=== PATIENT | female | born 1980 | race Caucasian/White ===

== ENCOUNTER 2023-03-21 07:58 | Day surgery (SDC) | payer MEDICARE, OTHER ==
[2023-03-13 10:39] VITALS: BP 118/83
[~2023-03-21] VITALS: Ht 157.5 cm; Wt 83.6 kg
[~2023-03-21 07:58] MED LIST: CYPROHEPTADINE H4 MG PO; LOVENOX120 MG/0.8 SUB-Q; PHENTERMINE H37.5 MG PO; PROZAC20 MG PO; VERAPAMIL ER240 MG PO
[2023-03-21 08:25] VITALS: BP 136/77
[2023-03-21] MEDS ORDERED: VITAMIN D310 MC1 PO (08:30)
[2023-03-21] MEDS ORDERED: FISH OIL 1,0001 EAC7 PO (08:31)
--- NOTE | 2023-03-21 10:33 | NUR ---
03/21/23 Michelle3 Farida Teran PT TO PACU AWAKE AND TALKING DENIES PAIN OR NAUSEA. PT MAINTAINS SATS ABOVE 95% ON ROOM AIR.
[2023-03-21] MEDS ORDERED: ENOXAPARIN40 MG/0.4 SUB-Q (10:35)
[2023-03-21] MEDS ORDERED: ACETAMINOPHEN500 MG PO (10:36)
[2023-03-21] MEDS ORDERED: IBUPROFEN600 MG PO (10:36)
[2023-03-21] MEDS ORDERED: OXYCODON-ACETA1 EAC2 PO (10:36)
[2023-03-21 11:00] VITALS: BP 128/77
[2023-03-21 12:10] VITALS: BP 116/75
--- NOTE | 2023-03-21 13:57 | NUR ---
1100: PT RETURNS TO UNIT VIA STRETCHER. AWAKE AND ALERT ON ARRIVAL. VSS, RESP EVEN AND UNLABORED. LEFT BREAST DRESSING C/D/I. RIGHT BREAST DRESSING WITH SMALL AMOUNT OF RED SHADOWING TO CENTER OF DRESSING. DENIES PAIN AND NAUSEA AT THIS TIME. REPORTING URGE TO VOID. DANGLED AT THE BEDSIDE, ALTA WE[place]. DENIES DIZZINESS AND SOB. TRANSFERS TO THE BEDSIDE COMMODE INDEPENDENTLY AND APPROPRIATELY. SUCCESSFUL FIRST POSTOP VOID, 300MLS. ICE WATER AND CRACKERS PROVIDED. ZAIN PIZANO AT THE BEDSIDE AND REPORT PROVIDED
--- NOTE | 2023-03-21 14:32 | NUR ---
[id number]: PT USES CALL LIGHT AND REQUESTS PAIN MEDICATION, RATES PAIN 4/10 BILATERALLY, STINGING. PT STATES, "I JUST WANT TO STAY AHEAD OF THE GAME BEFORE THE PAIN GETS TOO BAD." SEE EMAR FOR PAIN PRICE ANALYST. [id number]: PT STATES PAIN IS MUCH BETTER AND WOULD LIKE TO GET DRESSED AT THIS TIME. [id number]: DC INSTRUCTIONS PRESENTED TO PT AND PARTNER VERBALLY AND WRITTEN. IV REMOVED WNL. PT DC FROM DS RM 2 VIA WC TO PARTNER WAITING AT [facility] TO HOME.
--- NOTE | 2023-03-23 18:00 | OR ---
[facility] [address], [place] [address] Signed DATE OF OPERATION: 03/21/2023 SURGEON: Enrique Welch MD PREOPERATIVE DIAGNOSIS: Bilateral persistent nipple discharge (multifocal). POSTOPERATIVE DIAGNOSIS: Bilateral persistent nipple discharge (multifocal). PROCEDURE: Bilateral subareolar breast ductal excision. ANESTHESIA: General, LMA, Michael Hunt, SURVEILLANCE SENSOR OFFICER and local 10 mL of 0.25% Marcaine with epinephrine. INDICATION: This 43-year-old woman is a patient of Dr. Arauz and Dr. Costa. She was referred dominantly for right nipple drainage. She has had no prior or . She has had complaints of bilateral nipple discharge, right greater than left. Material is thick yellow but sometimes crankcase green in color and never bloody. Evaluation by Dr. Arauz included bilateral mammogram which was normal and subsequent MRI as recommended by the radiologist, which was normal as well. She does have family history of breast cancer in a paternal grandmother, but no other family members. 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 She was on warfarin chronically at one point and now into the management of Dr. Euceda, crane operator cab, who recommended against continuous anticoagulation. She does take Lovenox prior to plane travel, however. Her Factor V Leiden, hypercoagulable state is well acknowledge. She is admitted at this time to undergo right subareolar breast excision for both diagnosis and management of her persistent nipple drainage. She requests today also on the left side to be performed considering she had increasing drainage from that side as well. She and her partner understand the risk of bleeding, infection, recurrence of nipple drainage and other unforeseen complications related to operation. They also understands that if malignancy should be identified, additional treatment would be necessary. The patient has no intention of or breast-feeding, it is noted. FINDINGS: Electronically Signed By: ENRIQUE WELCH MD 03/23/23 1800 PATIENT NAME: KALEB HOLLINS OPERATIVE REPORT DATE OF : 78 REPORT #: [id number] PHYSICIAN: ENRIQUE WELCH MD PCP: BRI COSTA DO REPORT IS CONFIDENTIAL AND NOT TO BE RELEASED WITHOUT AUTHORIZATION [facility] [address], [place] [address] Signed Yellowish nipple discharge was noted from several duct rosa of the right areola as on the left. Excision included subareolar breast tissue, which had a nodular consistency to it. Those specimens were appropriately oriented and complete excision was undertaken with high probability that cessation of nipple discharge will be a result. Good cosmesis was maintained. PROCEDURE IN DETAIL: The patient was brought to the operating room, given a general LMA type anesthetic. Preoperative antibiotic Ancef was given. She was given heparin subcutaneously preoperatively mindful of her Factor V Leiden issues. Both breasts were prepared with a chlorhexidine solution and draped sterilely. The areolar margin on the right side was marked and an incision was made with a 15 blade. Dissection was carried through the dermis additionally with electrocautery. Flaps were elevated beneath the right nipple. Detaching underlying breast tissue and associated ducts with excision of underlying parenchyma of the breast with meticulous care. Nodular changes were noted in the area suggestive and diagnostic course of intraductal papillomata. The specimen was oriented with a short stitch superior, long stitch laterally and sent for permanent pathology. Irrigation was undertaken. Electrocautery used for hemostasis. The breast parenchyma was reapproximated with a pursestring type 2-0 Vicryl suture, preserving good breast contour beneath the nipple-areolar complex. Additional closure was undertaken in the deeper layers with interrupted 2-0 Vicryl. Skin ultimately closed with a running subcuticular 3-0 Vicryl, Steri-Strips were applied as was Acticoat dressing. With the exact same technique is on the right side, left-sided subareolar excision was undertaken and closed in a similar way. The patient was ultimately extubated and transferred to recovery room in good condition. Sponge, needle, and instrument counts reported as correct x3. In aggregate 10 mL of local anesthetic was used for postoperative analgesic benefit. Blood loss was less than 20 mL in aggregate. Sponge, needle, and instrument counts were as correct x3. MD JENNIFER Silva/MODL /[id number] Electronically Signed By: ENRIQUE WELCH MD 03/23/23 1800 PATIENT NAME: KALEB HOLLINS OPERATIVE REPORT DATE OF : 78 REPORT #: [id number] PHYSICIAN: ENRIQUE WELCH MD PCP: BRI COSTA DO REPORT IS CONFIDENTIAL AND NOT TO BE RELEASED WITHOUT AUTHORIZATION [address] [address] Signed cc: DO Tre Reilly, DO Jacquelyn Euceda MD Copies: BRI COSTA JAMES (MARIBEL) JACQUELYN YODER MD ~ Electronically Signed By: ENRIQUE WELCH MD 03/23/23 1800 PATIENT NAME: KALEB HOLLINSBETH OPERATIVE REPORT DATE OF : 78 REPORT #: [id number] PHYSICIAN: ENRIQUE WELCH MD PCP: BRI COSTA DO REPORT IS CONFIDENTIAL AND NOT TO BE RELEASED WITHOUT AUTHORIZATION
--- NOTE | 2023-03-24 16:13 | PATH ---
[facility] [address] [place], [place] [address] Signed SPECIMEN(S): A RIGHT BREAST, SUBAREOLAR SPECIMEN(S): B LEFT BREAST, SUBAREOLAR SPECIMEN SOURCE: A. RIGHT BREAST, SUBAREOLAR B. LEFT BREAST, SUBAREOLAR CLINICAL HISTORY: A-B) Nipple discharge possible intraductal papilloma FINAL PATHOLOGIC DIAGNOSIS: A. Right breast, subareolar, lumpectomy: - Benign breast tissue with adenosis, fibrocystic changes, apocrine metaplasia, and clustered microcalcifications present in benign breast tissue. - Negative for atypical features or evidence of malignancy. B. Left breast, subareolar, lumpectomy: - Benign breast tissue with adenosis, fibrocystic changes, apocrine metaplasia, and clustered microcalcifications present in benign breast tissue. - Negative for atypical features or evidence of malignancy. COMMENT: As part of [facility]' Quality Improvement Program, this case was reviewed by another member of our pathology staff. MANDY:DS:malika:C2NR MICROSCOPIC EXAMINATION: Histologic sections of all submitted blocks are examined by light microscopy. These findings, together with the gross examination, support the pathologic diagnosis. GROSS DESCRIPTION: A. The specimen, labeled and designated "Monroe Reyes" and designated on the requisition "right subareolar breast tissue," is received in formalin and consists of an oriented portion of fibroadipose tissue (14 g, 4.7 cm medial to lateral, 3.2 cm anterior to posterior, 2.7 cm superior to inferior). There is a short stitch marking superior and a long stitch marking lateral. The specimen is inked as follows: Blue = Superior Green = Inferior Yellow = Anterior PATIENT NAME: KALEB REYES PATHOLOGY DATE OF : 78 REPORT #: [id number] PHYSICIAN: AIYANA PATHOLOGY PCP: BRI COSTA DO REPORT IS CONFIDENTIAL AND NOT TO BE RELEASED WITHOUT AUTHORIZATION [facility] [address] [place], [place] [address] Signed Black = Posterior Red = Medial Irion = Lateral The specimen is serially sectioned from medial to lateral into nine slices to reveal a yellow-mooney fatty to white-mooney fibrous cut surface (40% fibrous). No discrete masses or lesions are gross identified. The specimen is submitted entirely and sequentially from medial to lateral in cassette A1-A10 with the medial and lateral aspects perpendicularly sectioned and A1 and A9-A10 respectively. Cold ischemic time: Cannot be calculated The tissue was fixed in formalin for at least 40 and less than 50 hours B. The specimen, labeled and designated "Walter Reyes" and designated on the requisition "left subareolar breast tissue," is received in formalin and consists of an oriented portion of fibroadipose tissue (17 g, 4.5 cm superior to inferior, 4.5 cm medial to lateral, 2.2 cm anterior to posterior) with short stitch marking superior and long stitch marking lateral. The specimen is inked as follows: Blue = Superior Green = Inferior Yellow = Anterior Black = Posterior Red = Medial Irion = Lateral The specimen is serially sectioned from superior to inferior into 10 slices to reveal a yellow-mooney fatty to white-mooney dense fibrous cut surface (40% fibrous). No discrete mass or lesion is grossly identified. The specimen is submitted entirely and sequentially from superior to inferior. Cassette Summary: (B1) slice one, perpendicularly sectioned, superior margin (B2) slice two (B3-B4) slice three (B5) slice four (B6-B7) slice five (B8-B9) slice six (B10-B11) slice seven (B12-B13) slice eight (B14-B15) slice nine (B16) slice 10, inferior margin, perpendicularly sectioned PATIENT NAME: KALEB REYES PATHOLOGY DATE OF : 78 REPORT #: [id number] PHYSICIAN: AIYANA BAR PCP: BRI COSTA DO REPORT IS CONFIDENTIAL AND NOT TO BE RELEASED WITHOUT AUTHORIZATION [facility] [address] [place], [place] [address] Signed Cold ischemic time: Cannot be calculated The tissue was fixed in formalin for at least 40 and less than 50 hours AC (under the direct supervision of a pathologist) The Gross Description was prepared using a voice recognition system. The report was reviewed for accuracy; however, sound-alike word errors, addition and/or deletions may occur. If there is any question about this report, please contact Client Services. PERFORMING LABORATORY: Technical component was performed by [facility], [address] [place] [id number] (CLIA# [id number]). Professional interpretation was performed by [facility] - [facility], [address] [place], [place] [id number] (CLIA#: [id number]). Diagnostician: Aroldo Parikh MD Pathologist Electronically Signed 03/24/2023 Copies: ~ PATIENT NAME: KALEB REYESBETH PATHOLOGY DATE OF : 78 REPORT #: [id number] PHYSICIAN: AIYANA BAR PCP: BRI COSTA DO REPORT IS CONFIDENTIAL AND NOT TO BE RELEASED WITHOUT AUTHORIZATION
== END 2023-03-21 12:50 | disposition home or self-care (01) ==
LOC: DS 07:58
PROVIDERS: ATTEND Surgery
PROC: 0HBV0ZZ Excision of Bilateral Breast, Open Approach (ICD-10-PCS; principal; 2023-03-21 10:15)
DX: N60.22 Fibroadenosis of left breast (principal); N60.21 Fibroadenosis of right breast; N64.52 Nipple discharge; Z86.73 Personal history of transient ischemic attack (TIA), and cerebral infarction without residual deficits; D68.51 Activated protein C resistance
CPT/HCPCS: 00400; 84703; 88307; J0131; J0690; J1100; J1644; J1650; J1885; J2250; J2405; J2704; J3010; J7121

== ENCOUNTER 2023-06-10 06:49 | Emergency (ER) | payer MEDICARE, OTHER ==
[~2023-06-10] VITALS: Ht 157.5 cm; Wt 86.0 kg
--- OUTSIDE RECORDS SUMMARY | ~2023-06-10 | XMS | Continuity of Care Document ---
Demographics + + + | Address | [address] | | | [place] [address] | + + + | Preferred Language | Unknown | + + + | Marital Status | Never | + + + | Scientologist Affiliation | Unknown | + + + | Race | White | + + + | Ethnic Group | Not or | + + + Author + + + | Author | [facility] | + + + | Organization | [facility] | + + + | Address | [address] | | | [place] [address] | + + + | Phone | | + + + Care Team Providers + + + + | Care Cut Out Stitcher Name | Role | Phone | + + + + Unavailable | Unavailable | + + + + Allergies No information. Encounters No information. Functional Status No information. Immunizations No information. Medications No information. Problems + + + + | date | description | facility | + + + + | 2023-03-13 09:59 | NIPPLE DISCHARGE | [facility] | + + + + | 2023-03-21 07:58 | ACTIVATED PROTEIN C | [facility] | | | RESISTANCE | | + + + + | 2023-03-21 07:58 | FIBROADENOSIS OF RIGHT | [facility] | | | BREAST | | + + + + | 2023-03-21 07:58 | FIBROADENOSIS OF LEFT | [facility] | | | BREAST | | + + + + | 2023-03-21 07:58 | NIPPLE DISCHARGE | [facility] | + + + + | 2023-03-21 07:58 | PRSNL HX OF TIA (TIA), AND | [facility] | | | CEREB INFRC W/O RESID D | | + + + + | 2023-03-21 10:15 | NIPPLE DISCHARGE | [facility] | + + + + Procedures No information. Results/Labs No information. Social History +--------+ + + | date | description | facility | +--------+ + + Vital Signs No information."
[~2023-06-10 06:49] MED LIST changes: +ACETAMINOPHEN500 MG PO; +ENOXAPARIN40 MG/0.4 SUB-Q; +FISH OIL 1,0001 EAC7 PO; +IBUPROFEN600 MG PO; +OXYCODON-ACETA1 EAC2 PO; +VITAMIN D310 MC1 PO
[2023-06-10 07:44] LABS: BASOPHILS 0.6 % (0-2); EOSINOPHILS 0.8 % (0-6); HEMOGLOBIN 13.9 g/dL (12.0-18.0); LYMPHOCYTES 10.2 % (24-44); MCH 31.1 (27-36); MCHC 33.1 g/dl (30-36); MONOCYTES 7.2 % (0-12); NEUTROPHILS 81.2 % (39-80); PLATELET COUNT 169 K/uL (140-440); RBC 4.47 M/ul (4.3-5.7); RDW 13.3 (10.5-15.0)
[2023-06-10 07:59] LABS: ALBUMIN 3.9 g/dL (3.4-5.0); ALBUMIN/GLOBULIN RATIO 1.3 (1.1-2.4); ANION GAP 14.8 (7-21); BILIRUBIN, TOTAL 1.1 ng/dL (0.2-1.0); BUN/CREATININE RATIO 10.66 (6.0-28.6); CALCIUM 8.8 mg/dL (8.5-10.1); CREATININE, SERUM 0.75 mg/dL (0.55-1.02); POTASSIUM 3.8 mmol/L (3.5-5.1); PROTEIN, TOTAL 6.9 g/dL (6.4-8.2)
[2023-06-10 08:38] LABS: ABO O; RH POSITIVE
[2023-06-10 08:39] LABS: ANTIBODY SCREEN NEGATIVE
[2023-06-10 09:15] VITALS: BP 134/84
== END 2023-06-10 09:15 | disposition home or self-care (01) ==
LOC: ED 06:49
PROVIDERS: Emergency Medicine
DX: R19.7 Diarrhea, unspecified (principal); Z86.73 Personal history of transient ischemic attack (TIA), and cerebral infarction without residual deficits; Z88.8 Allergy status to other drugs, medicaments and biological substances; Z91.09 Other allergy status, other than to drugs and biological substances; Z79.899 Other long term (current) drug therapy
CPT/HCPCS: 36415; 80053; 85025; 86850; 86900; 86901; 99284; J7030